=== PATIENT | male | born 2000 | race Caucasian/White ===

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

== ENCOUNTER 2019-03-10 01:33 | Emergency (ER) | payer OTHER ==
[~2019-03-10] VITALS: Ht 182.9 cm; Wt 90.9 kg
[~2019-03-10 01:33] MED LIST: BACTRIM DS 8001 TAB PO
[2019-03-10 01:41] VITALS: TEMP 96.5
[2019-03-10] MEDS ORDERED: MEDROL 4MG DOSPA4 MG PO (02:44)
[2019-03-10 02:51] VITALS: BP 120/74; PULSE 66
== END 2019-03-10 02:51 | disposition home or self-care (01) ==
LOC: COL.ER 01:33
DX: R09.81 Nasal congestion (principal)
CPT/HCPCS: J1100